=== PATIENT | female | born 1985 | race Two or more races ===

== ENCOUNTER → 2024-11-27 | Outpatient (CLI) | payer OTHER, SELFPAY ==
[2024-11-27 15:42] LABS: Parathyroid Hormone Intact 109.7 pg/ml (18.5-88.0)
[2024-11-27 15:48] LABS: Folate 7.71 ng/mL (>5.38); Vitamin B12 550 pg/mL (211-911); Vitamin D 25 Hydroxy Total 7.8 ng/mL (7.3-40.2)
[2024-11-27 15:52] LABS: Alanine Aminotransferase 12 U/L (10-49); Albumin, Serum 4.1 gm/dL (3.5-5.0); Albumin/Globulin Ratio 1.4 (1.2-2.2); Anion Gap 8 (7-16); Aspartate Amino Transferase 14 U/L (0-34); BUN/Creatinine Ratio 20 Ratio (12-20); Bilirubin,Direct 0.1 mg/dL (0.0-0.3); Bilirubin,Total 0.3 mg/dL (0.3-1.2); Blood Urea Nitrogen 12 mg/dL (9-23); Carbon Dioxide 25.1 mMol/L (20.0-31.0); Cardiac Risk Estimate 4.9 RATIO (3.7-5.6); Chloride 106 mMol/L (98-107); Cholesterol 180 mg/dL (132-200); Creatinine (Component) 0.6 mg/dL (0.6-1.3); Free T4 (Free Thyroxine) 1.11 ng/dL (0.89-1.76); Glucose 79 mg/dL (74-106); HDL Cholesterol 37 mg/dL (40-60); LDL Cholesterol,Calculated 116 mg/dL (0-130); Osmolality,Calculated 276 (275-295); Potassium 4.2 mMol/L (3.4-5.1); Sodium 139 mMol/L (136-145); Thyroid Stimulating Hormone 1.57 uIU/mL (0.55-4.78); Total Iron Binding Capacity 347 mcg/dL (250-425); Total Protein 7.1 gm/dL (5.7-8.2); Triglycerides 136 mg/dL (30-150); eGFR > 60 See Note
[2024-11-27 16:02] LABS: Iron 74 mcg/dL (50-170); Percent Iron Saturation 21 % (20-55); Unsaturated Iron Binding 273 (225-295)
[2024-11-27 16:06] LABS: Alkaline Phosphatase 102 U/L (46-116)
[2024-11-27 17:30] LABS: Basophils % (Auto) 0 % (0-2.5); Eosinophils # (Auto) 0.1 Thou/mm3 (0.0-0.5); Eosinophils % (Auto) 2 % (0-10); Hematocrit 36.8 % (36.0-46.0); Immature Granulocytes % (Auto) 0 % (0-0); Immature Granulocytes Auto 0.01 Thou/mm3 (0.00-0.00); Lymphocytes # (Auto) 2.5 Thou/mm3 (1.0-4.8); Lymphocytes % (Auto) 33 % (10-50); Mean Corpuscular HGB Conc 32.6 g/dl (31.0-37.0); Mean Corpuscular Hemoglobin 28.2 pg (25.0-35.0); Mean Corpuscular Volume 86 fL (80-100); Monocytes # (Auto) 0.3 Thou/mm3 (0.0-0.8); Monocytes % (Auto) 5 % (0-12); Neutrophils # (Auto) 4.6 Thou/mm3 (1.8-7.7); Neutrophils % (Auto) 60 % (37-80); Nucleated Red Blood Cell % 0 /100 WBC (0); Platelet Count 196 Thou/mm3 (140-440); RDW Standard Deviation 44.7 fL (36.4-46.3); Red Blood Count 4.26 Miln/mm3 (4.00-5.20); White Blood Count 7.6 Thou/mm3 (3.6-11.0)
[2024-11-27 17:38] LABS: Glucose Estimated Average 105 mg/dL (80-131); Hemoglobin A1C 5.3 % Hgb (4.8-6.0)
[2024-12-05 06:50] LABS: Copper* 147 mcg/dL (70-175); Zinc, Plasma* 59 mcg/dL (60-130)
[2024-12-05 06:52] LABS: Vitamin B1 (Thiamine)* <6 nmol/L (8-30)
== END | disposition home or self-care (01) ==
LOC: COPL 13:50
PROVIDERS: PCP Physician Assistant; Referring Provider Student in an Organized Health Care Education/Training Program; Visit Provider Student in an Organized Health Care Education/Training Program
DX: Z00.00 Encounter for general adult medical examination without abnormal findings (principal); E78.5 Hyperlipidemia, unspecified; E55.9 Vitamin D deficiency, unspecified; E66.01 Morbid (severe) obesity due to excess calories; B35.1 Tinea unguium
CPT/HCPCS: 36415; 80053; 80061; 81001; 82248; 82306; 82525; 82607; 82746; 83036; 83540; 83550; 83970; 84425; 84439; 84443; 84630; 85025

== ENCOUNTER → 2025-01-01 | Outpatient (CLI) | payer OTHER, SELFPAY ==
--- NOTE | 2025-01-01 13:30 | XR_ITS ---
Examination: Screening digital mammography, bilateral Computer aided detection 3-D breast Tomosynthesis, bilateral Date and time of exam: January 01, 2025 1323 hours Comparison December 16, 2022, left breast sonography December 02, 2023 bilateral breast sonography April 19, 2023 Indication: Screening Technique: Nonmagnified MLO, CC views of the breasts to been obtained, reconstructed from 3-D Tomosynthesis images. R2 computer aided detection program utilized for evaluation of suspicious masses and/or abnormal calcifications. 3-D Tomosynthesis images obtained. Findings: The breasts are heterogeneously dense, which may obscure small masses Breast biopsy marker again noted upper outer left breast 7 mm nodule outer left breast posterior depth, 14 cm from the nipple Prominent right axillary lymph nodes Impression: BI-RADS Category 0: Incomplete: Need additional imaging evaluation 7 mm nodule outer left breast posterior depth, recommend follow-up spot tomographic views upper outer quadrant left breast posterior depth Prominent right axillary lymph nodes, recommend bilateral breast sonography follow-up.
== END | disposition home or self-care (01) ==
PROVIDERS: PCP Physician Assistant; Referring Provider Physician Assistant; Visit Provider Physician Assistant
DX: Z12.31 Encounter for screening mammogram for malignant neoplasm of breast (principal); N63.21 Unspecified lump in the left breast, upper outer quadrant; R92.8 Other abnormal and inconclusive findings on diagnostic imaging of breast
CPT/HCPCS: 77063; 77067

== ENCOUNTER → 2025-01-22 | Outpatient (CLI) | payer OTHER, SELFPAY ==
--- NOTE | 2025-01-22 14:00 | XR_ITS ---
Examination: Breast ultrasound complete, bilateral Date and time of exam: January 22, 2025 1434 hours INDICATIONS: Left breast sonogram December 02, 2023 1:00 nodule 6 mm 3:00 nodule 8 mm 5:00 nodule 11 mm, mammogram January 01, 2025 7 mm nodule outer left breast prominent right axillary lymph nodes Technique: Real-time grayscale ultrasonographic imaging bilateral breasts, including all 4 quadrants as well as nipple retroareolar and axillary regions. Findings: Sonographic images right breast 10:00 cyst 8 x 10 mm 11:00 cyst 16 x 16 mm No solid nodules Sonographic images left breast 1:00 cyst 14 x 12 mm 2:00 cyst 8 x 5 mm 3:00 nodule circumscribed 8 x 7 mm 3:00 nodule lobular margins 7 x 7 mm No definite pathologic axillary lymph nodes IMPRESSION: BI-RADS Category 3: Probably benign findings One additional bilateral breast sonography 6 month follow-up is needed
--- NOTE | 2025-01-22 15:00 | XR_ITS ---
Examination: Diagnostic digital mammography, unilateral, left Computer aided detection 3-D breast Tomosynthesis, unilateral Date and time of exam: January 22, 2025 1504 hours INDICATIONS: Mammogram January 01, 2025 7 mm nodule outer left breast posterior depth Technique: Nonmagnified MLO, CC views of the left breast have been obtained, reconstructed from 3-D Tomosynthesis images. R2 computer aided detection program utilized for evaluation of suspicious masses and/or abnormal calcifications. 3-D Tomosynthesis images obtained. Findings: The breast is heterogeneously dense, which may obscure small masses 7 mm nodule 3:00 position left breast with adjacent breast biopsy marker Impression: BI-RADS category 3: Probably benign findings One additional 6 month left mammogram follow-up is needed
== END | disposition home or self-care (01) ==
LOC: CDIM 14:21
PROVIDERS: PCP Family Medicine; Referring Provider Physician Assistant; Visit Provider Physician Assistant
DX: R92.332 Mammographic heterogeneous density, left breast (principal); N63.25 Unspecified lump in the left breast, overlapping quadrants; N60.01 Solitary cyst of right breast; N60.02 Solitary cyst of left breast
CPT/HCPCS: 76641; 77061; 77065; G0279

== ENCOUNTER → 2025-06-05 | Outpatient (CLI) | payer OTHER, SELFPAY ==
--- NOTE | 2025-06-05 10:17 | XR_ITS ---
Examination: Abdomen sonogram, Limited Date and time of exam: September 04, 2025 1029 hours INDICATIONS: Diagnosis of morbid obesity Technique: Real-time campos scale transabdominal sonographic images of the upper abdomen obtained. Findings: Normal gallbladder. Normal common bile duct 0.3 cm. Pancreas obscured by the patient's size Liver 12.4 cm fatty infiltration Normal hepatopedal portal venous flow Patent IVC IMPRESSION: Limited study Normal gallbladder
== END | disposition home or self-care (01) ==
LOC: CDIM 10:05
PROVIDERS: PCP Physician Assistant; Referring Provider Student in an Organized Health Care Education/Training Program; Visit Provider Student in an Organized Health Care Education/Training Program
DX: E66.01 Morbid (severe) obesity due to excess calories (principal)
CPT/HCPCS: 76705

== ENCOUNTER → 2025-06-18 | Outpatient (CLI) | payer OTHER, SELFPAY ==
[2025-06-18 09:50] LABS: Basophils # (Auto) 0.0 Thou/mm3 (0.0-0.2); Basophils % (Auto) 0 % (0-2.5); Eosinophils # (Auto) 0.1 Thou/mm3 (0.0-0.5); Eosinophils % (Auto) 1 % (0-10); Hematocrit 39.1 % (36.0-46.0); Hemoglobin 12.6 g/dL (12.0-16.0); Immature Granulocytes Auto 0.01 Thou/mm3 (0.00-0.00); Lymphocytes # (Auto) 2.0 Thou/mm3 (1.0-4.8); Lymphocytes % (Auto) 30 % (10-50); Mean Corpuscular HGB Conc 32.2 g/dl (31.0-37.0); Mean Corpuscular Hemoglobin 28.2 pg (25.0-35.0); Mean Corpuscular Volume 88 fL (80-100); Monocytes # (Auto) 0.3 Thou/mm3 (0.0-0.8); Monocytes % (Auto) 5 % (0-12); Neutrophils # (Auto) 4.3 Thou/mm3 (1.8-7.7); Neutrophils % (Auto) 64 % (37-80); Nucleated Red Blood Cell # 0.00 Thou/mm3 (0.00-0.00); Nucleated Red Blood Cell % 0 /100 WBC (0); Platelet Count 189 Thou/mm3 (140-440); RDW Standard Deviation 43.6 fL (36.4-46.3); Red Blood Count 4.47 Miln/mm3 (4.00-5.20); White Blood Count 6.7 Thou/mm3 (3.6-11.0)
[2025-06-18 10:01] LABS: Glucose Estimated Average 111 mg/dL (80-131); Hemoglobin A1C 5.5 % Hgb (4.8-6.0)
[2025-06-18 10:08] LABS: Collection Type, Urine Clean Catch
[2025-06-18 10:12] LABS: INR 1.0 (0.9-1.3); Partial Thromboplastin Time 26.7 Seconds (22.0-36.0); Prothrombin Time 10.6 Seconds (9.0-12.2)
[2025-06-18 10:17] LABS: Parathyroid Hormone Intact 94.0 pg/ml (18.5-88.0)
[2025-06-18 10:22] LABS: Vitamin B12 584 pg/mL (211-911); Vitamin D 25 Hydroxy Total 39.7 ng/mL (7.3-40.2)
[2025-06-18 10:24] LABS: Alanine Aminotransferase 13 U/L (10-49); Albumin, Serum 4.3 gm/dL (3.5-5.0); Albumin/Globulin Ratio 1.2 (1.2-2.2); Alkaline Phosphatase 102 U/L (46-116); Anion Gap 8 (7-16); Aspartate Amino Transferase 17 U/L (0-34); BUN/Creatinine Ratio 13 Ratio (12-20); Bilirubin,Total 0.4 mg/dL (0.3-1.2); Blood Urea Nitrogen 9 mg/dL (9-23); Calcium 9.6 mg/dL (8.3-10.6); Calcium (Corrected) 9.6 mg/dL (8.5-10.1); Carbon Dioxide 30.0 mMol/L (20.0-31.0); Cardiac Risk Estimate 5.1 RATIO (3.7-5.6); Chloride 103 mMol/L (98-107); Cholesterol 200 mg/dL (132-200); Creatinine (Component) 0.7 mg/dL (0.6-1.3); Free T4 (Free Thyroxine) 1.16 ng/dL (0.89-1.76); Globulin 3.5 gm/dL (2.3-3.5); Glucose 104 mg/dL (74-106); HDL Cholesterol 39 mg/dL (40-60); LDL Cholesterol,Calculated 125 mg/dL (0-130); Magnesium 2.1 mg/dL (1.6-2.6); Osmolality,Calculated 279 (275-295); Potassium 4.2 mMol/L (3.4-5.1); Sodium 141 mMol/L (136-145); Thyroid Stimulating Hormone 2.13 uIU/mL (0.55-4.78); Total Protein 7.8 gm/dL (5.7-8.2); Triglycerides 178 mg/dL (30-150); eGFR > 60 See Note
[2025-06-18 10:29] LABS: Ferritin 26 ng/mL (7.3-270.7); Iron 72 mcg/dL (50-170); Percent Iron Saturation 20 % (20-55); Total Iron Binding Capacity 346 mcg/dL (250-425); Unsaturated Iron Binding 274 (225-295)
[2025-06-18 10:32] LABS: Bilirubin,Urine Negative (Negative); Blood,Urine Negative (Negative); Clarity,Urine Clear (Clear/Hazy); Color,Urine Lt-Yellow (Lt Yel-Yel); Culture Indicated,Urine Not Indicated; Glucose, Urine Negative (Negative); Ketones,Urine Negative (Negative); Leukocyte Esterase,Urine Negative (Negative); Nitrite,Urine Negative (Negative); PH,Urine 7.0 (5.0-7.0); Protein,Urine Negative (Neg - Trace); RBC,Urine 1 /hpf (0-3); Specific Gravity,Urine 1.019 (1.001-1.035); Squamous Epithelial Cell,Urine 8 /hpf (0-5); Urobilinogen,Urine Negative mg/dL (0.0-1.0); WBC,Urine 2 /hpf (0-5)
[2025-06-25 06:52] LABS: Zinc, Plasma* 61 mcg/dL (60-130)
[2025-06-26 06:33] LABS: Vitamin B1 (Thiamine)* <6 nmol/L (8-30)
== END | disposition home or self-care (01) ==
LOC: COPL 09:05
PROVIDERS: PCP Family Medicine; Referring Provider Physician Assistant; Visit Provider Physician Assistant
DX: Z00.00 Encounter for general adult medical examination without abnormal findings (principal); E78.5 Hyperlipidemia, unspecified; E55.9 Vitamin D deficiency, unspecified; E56.9 Vitamin deficiency, unspecified; E50.9 Vitamin A deficiency, unspecified; Z13.1 Encounter for screening for diabetes mellitus; K91.2 Postsurgical malabsorption, not elsewhere classified; Z13.21 Encounter for screening for nutritional disorder; E66.01 Morbid (severe) obesity due to excess calories; Z98.84 Bariatric surgery status; Z13.220 Encounter for screening for lipoid disorders
CPT/HCPCS: 36415; 80053; 80061; 81001; 82306; 82607; 82728; 83036; 83540; 83550; 83735; 83970; 84425; 84439; 84443; 84630; 85025; 85610; 85730

== ENCOUNTER → 2025-07-09 | Outpatient (CLI) | payer OTHER, SELFPAY ==
--- NOTE | 2025-07-09 09:00 | XR_ITS ---
EXAMINATION: Upper GI series with KUB Esophagram standard Fluoroscopy 24 spot fluoroscopic films of the esophagus and stomach Date and time: July 09, 2025, 0914 hours INDICATIONS: Preop bariatric surgery TECHNIQUE AND FINDINGS: Application Architect AP supine abdomen nonobstructive bowel gas pattern Patient swallowed thin barium with 24 spot films of the esophagus stomach duodenal bulb and sweep Fluoroscopy 0.16 minutes Primary peristaltic esophageal waves noted No esophageal lesion Small sliding esophageal hernia No gastric mass deformity or ulceration Duodenal bulb expands symmetrically duodenal sweep and ligament of Treitz unremarkable IMPRESSION: Small sliding esophageal hernia No gastric mass deformity or ulceration Negative for active peptic disease involving the duodenum
== END | disposition home or self-care (01) ==
PROVIDERS: PCP Student in an Organized Health Care Education/Training Program; Referring Provider Student in an Organized Health Care Education/Training Program; Visit Provider Student in an Organized Health Care Education/Training Program
DX: K44.9 Diaphragmatic hernia without obstruction or gangrene (principal); Z01.818 Encounter for other preprocedural examination
CPT/HCPCS: 74240; A4649